=== PATIENT | male | born 1990 | race African-American/Black ===

== ENCOUNTER 2018-12-27 21:36 | Emergency (ER) | payer OTHER ==
[~2018-12-27] VITALS: Ht 172.7 cm; Wt 74.4 kg
[2018-12-28] MEDS ORDERED: NORCO 5-325 TA1 EACH PO (01:23)
[2018-12-28 01:28] VITALS: BP 116/64
== END 2018-12-28 01:30 | disposition home or self-care (01) ==
LOC: ER 21:36
DX: S01.312A Laceration without foreign body of left ear, initial encounter (principal); S09.8XXA Other specified injuries of head, initial encounter; H53.8 Other visual disturbances; F17.210 Nicotine dependence, cigarettes, uncomplicated; Z88.6 Allergy status to analgesic agent; Y08.89XA Assault by other specified means, initial encounter; Y93.89 Activity, other specified; Y92.89 Other specified places as the place of occurrence of the external cause; Y99.8 Other external cause status

== ENCOUNTER 2019-01-04 16:37 | Emergency (ER) | payer OTHER ==
[~2019-01-04] VITALS: Ht 172.7 cm; Wt 73.5 kg
[~2019-01-04 16:37] MED LIST: NORCO 5-325 TA1 EACH PO
[2019-01-04 17:26] VITALS: BP 121/63
== END 2019-01-04 17:30 | disposition home or self-care (01) ==
LOC: ER 16:37
DX: S01.312D Laceration without foreign body of left ear, subsequent encounter (principal); F17.210 Nicotine dependence, cigarettes, uncomplicated; W22.8XXD Striking against or struck by other objects, subsequent encounter